=== PATIENT | female | born 1940 | race Caucasian/White ===

== ENCOUNTER → 2024-08-15 08:42 | Outpatient (CLI) | payer MEDICARE, SELFPAY ==
--- NOTE | 2024-08-15 08:52 | DI.MRI.S_ITS ---
PROCEDURE: MR PELIS WO/W CON INDICATIONS: RECTAL CANCER STAGING TECHNIQUE: Coronal HASTE, sagittal T2 FSE, axial T1 FSE, axial and coronal nonbreath-hold T2 FSE. Axial dynamic VIBE during administration of contrast. Post-contrast axial and coronal VIBE/2-D FLASH with fat saturation from the iliac crests to the symphysis. Optional diffusion weighted imaging and ADC may be performed. COMPARISON: None. FINDINGS: Image quality: Fair. Rectum: Morphology: Circumferential upper and mid rectal mass. Associated luminal narrowing. Possible ulceration at the right inferior aspect with associated susceptibility artifact. Mucinous (high T2 signal): No Craniocaudal length: 6 cm, (2/28) Distance to anal verge: 5.2 cm Distance to top of sphincter complex/anorectal junction: 2.4 cm Relationship to anterior peritoneal reflection: Straddles Tumor at or below puborectalis sling: No T staging: Depth of extramural invasion: 3 cm, left lateral, (5/10). Extramural vascular invasion: None. T3 tumors only: distance to mesorectal fascia (circumferential resection margin): 1.4 cm, (3/38). Pelvic organ involvement: Genitourinary: None. Pelvic sidewall (obturator internus, piriformis, ischiococcygeus muscles): None Pelvic floor (pubococcygeus, iliococcygeus, puborectalis, levator plate): None Sacrum: None Vessels (internal and external iliac arteries and veins): None Nerves (lumbosacral nerve roots): None Regional lymph nodes (mesorectal, inguinal, iliac): Small right mesorectal lymph node measuring 0.4 cm, (14/43). Other bowel and peritoneum: No pathologic free pelvic fluid. More proximal colon and small bowel loops are normal in caliber. Subcutaneous cyst at the left gluteal cleft measuring 0.8 cm, (3/46). This could represent a sebaceous cysts. Pelvic floor laxity with descent. Anteverted uterus. Bones: Marrow is normal in overall signal. Small right sacral Tarlov cysts. IMPRESSION: 1. Upper/mid rectal circumferential mass measuring 6 cm in length. Extramural invasion 3 cm. T4D. 2. Small right mesorectal lymph node measuring 0.4 cm. Dictated by: Jakob Bell M.D. on 08/15/2024 at 13:22 Approved by: Jakob Bell M.D. on 08/15/2024 at 13:41
== END ==
PROVIDERS: Referring Provider Surgery; Visit Provider Surgery
DX: C20 Malignant neoplasm of rectum (principal)
CPT/HCPCS: 72197; A9579